=== PATIENT | male | born 1980 | race Caucasian/White ===

== ENCOUNTER 2017-08-08 15:26 | Emergency (ER) | payer OTHER ==
[2017-08-08 16:42] VITALS: BP 146/76
== END 2017-08-08 16:42 | disposition home or self-care (01) ==
LOC: ED 15:26
DX: S62.646A Nondisplaced fracture of proximal phalanx of right little finger, initial encounter for closed fracture (principal); F17.200 Nicotine dependence, unspecified, uncomplicated; X58.XXXA Exposure to other specified factors, initial encounter; Y93.89 Activity, other specified; Y99.8 Other external cause status; Y92.89 Other specified places as the place of occurrence of the external cause
CPT/HCPCS: A4570

== ENCOUNTER 2018-03-31 11:21 | Emergency (ER) | payer OTHER ==
[~2018-03-31] VITALS: Ht 175.3 cm; Wt 107.0 kg
[2018-03-31 11:26] VITALS: Ht 175.3 cm; Wt 107.0 kg
[2018-03-31 13:19] VITALS: BP 129/86
== END 2018-03-31 13:19 | disposition home or self-care (01) ==
LOC: ED 11:21
DX: M54.5 Low back pain (principal)

== ENCOUNTER 2019-09-03 13:56 | Emergency (ER) | payer OTHER ==
[~2019-09-03] VITALS: Ht 175.3 cm; Wt 106.6 kg
[2019-09-03 14:00] VITALS: BP 145/89; Ht 175.3 cm; Wt 106.6 kg
== END 2019-09-03 16:34 | disposition home or self-care (01) ==
LOC: ED 13:56
DX: S13.9XXA Sprain of joints and ligaments of unspecified parts of neck, initial encounter (principal); W23.0XXA Caught, crushed, jammed, or pinched between moving objects, initial encounter; Y93.89 Activity, other specified; Y92.89 Other specified places as the place of occurrence of the external cause; Y99.8 Other external cause status
CPT/HCPCS: 72072; J1885

== ENCOUNTER 2020-07-17 17:28 | Emergency (ER) | payer OTHER ==
[~2020-07-17] VITALS: Ht 175.3 cm; Wt 108.9 kg
[2020-07-17 17:37] VITALS: Ht 175.3 cm; Wt 108.9 kg
[2020-07-17 18:45] VITALS: BP 133/79
== END 2020-07-17 18:45 | disposition home or self-care (01) ==
LOC: ED 17:28
DX: S61.210A Laceration without foreign body of right index finger without damage to nail, initial encounter (principal); Z88.5 Allergy status to narcotic agent; W26.0XXA Contact with knife, initial encounter; Y93.89 Activity, other specified; Y92.89 Other specified places as the place of occurrence of the external cause; Y99.8 Other external cause status
CPT/HCPCS: 90715; J2001

== ENCOUNTER 2020-10-01 22:10 | Emergency (ER) | payer OTHER ==
[~2020-10-01] VITALS: Ht 175.3 cm; Wt 105.2 kg
[2020-10-01 22:33] VITALS: BP 118/81; Ht 175.3 cm; Wt 105.2 kg
== END 2020-10-02 01:06 | disposition home or self-care (01) ==
LOC: ED 22:10
DX: S62.617A Displaced fracture of proximal phalanx of left little finger, initial encounter for closed fracture (principal); W01.198A Fall on same level from slipping, tripping and stumbling with subsequent striking against other object, initial encounter; Y93.89 Activity, other specified; Y92.89 Other specified places as the place of occurrence of the external cause; Y99.8 Other external cause status
CPT/HCPCS: A4570; J2001